=== PATIENT | female | born 1985 | race African-American/Black ===

== ENCOUNTER 2017-02-22 16:21 | Emergency (ER) | payer MEDICAID ==
[~2017-02-22] VITALS: Ht 167.6 cm; Wt 89.0 kg
[2017-02-22 16:33] VITALS: BP 147/89
== END 2017-02-22 21:00 | disposition left against medical advice (07) ==
LOC: ER 16:21
DX: M54.2 Cervicalgia (principal); Z53.21 Procedure and treatment not carried out due to patient leaving prior to being seen by health care provider

== ENCOUNTER 2023-02-17 10:13 | Emergency (ER) | payer MEDICAID, OTHER ==
[~2023-02-17] VITALS: Ht 167.6 cm; Wt 87.0 kg
[2023-02-17 10:27] VITALS: O2SAT 98
[2023-02-17] MEDS ORDERED: VALA100044 MT (11:01)
[2023-02-17] MEDS ORDERED: TC025C15 TP (11:01)
[2023-02-17] MEDS ORDERED: IBUP-2029 MT (11:01)
[2023-02-17 11:15] VITALS: BP 129/84; PULSE 76; RESP 18; TEMP 98.7
== END 2023-02-17 11:16 | disposition home or self-care (01) ==
LOC: ER 10:13
DX: L25.8 Unspecified contact dermatitis due to other agents (principal)
CPT/HCPCS: 99281; 99283

== ENCOUNTER 2023-10-05 17:46 | Emergency (ER) | payer MEDICAID, OTHER ==
[~2023-10-05] VITALS: Ht 177.8 cm; Wt 100.0 kg
[~2023-10-05 17:46] MED LIST: IBUP-2029 MT; TC025C15 TP; VALA100044 MT
[2023-10-05 17:58] VITALS: BP 150/91; PULSE 99; RESP 18; TEMP 98.6; O2SAT 100
[2023-10-05] MEDS ORDERED: KETOROLAC 30MG/ML VIAL IV STA (19:19)
[2023-10-05] MEDS ORDERED: METOCLOPRAMIDE HCL 10MG/2ML VIAL IV ONE (19:30)
[2023-10-05] MEDS ORDERED: DIPHENHYDRAMINE 50MG/ML VIAL IV ONE (19:30)
[2023-10-05 19:44] LABS: CHLORIDE 106 mEq/L (98-107); POTASSIUM 3.3 mEq/L (3.5-5.1); SODIUM 138 mEq/L (136-145)
[2023-10-05 19:45] LABS: CARBON DIOXIDE 28 mEq/L (21-32)
[2023-10-05 19:46] LABS: BASOPHILS % 0.4 % (0.0-2.0); CALCIUM 8.8 mg/dL (8.7-10.4); EOSINOPHILS % 0.5 % (0.0-5.0); HEMATOCRIT. 38.3 % (36.0-48.0); HEMOGLOBIN. 13.1 g/dL (12.0-16.0); MEAN CORPUSCULAR HEMOGLOBIN 28.3 pg (28.0-32.0); MEAN CORPUSCULAR HGB CONC 34.1 g/dL (31.0-37.0); MEAN CORPUSCULAR VOLUME 83.1 fL (81.0-99.0); MEAN PLATELET VOLUME 9.1 fl (7.4-10.4); MONOCYTES % 12.7 % (2.0-8.0); NEUTROPHILS % 61.4 % (40.0-76.0); PLATELET 254 x1000/uL (130-400); RED BLOOD CELL COUNT 4.61 mill/uL (4.2-5.4); RED CELL DISTRIBUTION WIDTH 14.5 % (11.6-14.6); WHITE BLOOD COUNT 7.4 x1000/uL (4.5-11.0)
[2023-10-05 19:48] LABS: HCG SCREEN NEGATIVE
[2023-10-05 19:50] LABS: CREATININE 0.7 mg/dL (0.6-1.0)
[2023-10-05 19:51] LABS: GLUCOSE 91 mg/dL (70-105); UREA NITROGEN BLOOD 6 mg/dL (9-23)
[2023-10-05] MEDS ORDERED: IBUP-2030 MT (20:10)
[2023-10-05] MEDS ORDERED: METO5TAB86 MT (20:10)
== END 2023-10-05 21:00 | disposition home or self-care (01) ==
LOC: ER 17:46
DX: R51.9 Headache, unspecified (principal); R11.10 Vomiting, unspecified
CPT/HCPCS: 36415; 80048; 84703; 85025; 99284

== ENCOUNTER 2023-11-29 21:51 | Emergency (ER) | payer MEDICAID, OTHER ==
[~2023-11-29] VITALS: Ht 165.1 cm; Wt 84.0 kg
[~2023-11-29 21:51] MED LIST changes: +IBUP-2030 MT; +METO5TAB86 MT
[2023-11-29 22:04] VITALS: BP 164/93; PULSE 102; RESP 20; TEMP 98.4; O2SAT 100
[2023-11-29 22:53] LABS: CLARITY URINE CLOUDY (CLEAR); COLOR URINE DARK YELLOW (YELLOW); GLUCOSE URINE NEGATIVE (NEGATIVE); KETONES URINE TRACE (NEGATIVE); LEUKOCYTE ESTERASE URINE 2+ (NEGATIVE); NITRITE URINE NEGATIVE (NEGATIVE); OCCULT BLOOD URINE NEGATIVE (NEGATIVE); PH URINE 5.5 (4.5-8.0); PROTEIN URINE 1+ (NEGATIVE); SPECIFIC GRAVITY URINE 1.029 (1.005-1.030)
[2023-11-29 23:05] LABS: BACTERIA URINE 2+; RBC URINE 0-2 /hpf (0-2); SQUAMOUS EPITHELIAL CELL URINE 2+ /lpf (RARE/1+)
[2023-11-29] MEDS ORDERED: DOXY100C5 MT (23:18)
[2023-11-29] MEDS: CEFTRIAXONE SODIUM 500MG VIAL IM ONE (23:50)
[2023-11-30] MEDS ORDERED: PENI500T MT (00:34)
[2023-12-03 13:06] LABS: CHLAMYDIA TRACHOMATIS NAA Negative (Negative); NEISSERIA GONORRHOEAE NAA Negative (Negative)
== END 2023-11-30 00:51 | disposition home or self-care (01) ==
LOC: ER 21:51
DX: J02.0 Streptococcal pharyngitis (principal); Z20.2 Contact with and (suspected) exposure to infections with a predominantly sexual mode of transmission
CPT/HCPCS: 87491; 87591; 81003; 81025; 87430; 96372; 99283; J0696; Z7610

== ENCOUNTER 2025-03-06 11:40 | Emergency (ER) | payer MEDICAID, OTHER ==
[~2025-03-06] VITALS: Ht 167.6 cm; Wt 91.0 kg
[~2025-03-06 11:40] MED LIST changes: +DOXY100C5 MT; +IBUP-1455 MT; -IBUP-2029 MT; +PENI500T MT
[2025-03-06 11:46] VITALS: O2SAT 98
[2025-03-06 11:52] VITALS: BP 192/108; PULSE 73; RESP 18; TEMP 36.9; O2SAT 98
== END 2025-03-06 13:00 | disposition left against medical advice (07) ==
LOC: ER 11:40
DX: I10 Essential (primary) hypertension (principal); R42 Dizziness and giddiness
CPT/HCPCS: 99282